=== PATIENT | female | born 1980 | race Caucasian/White ===

== ENCOUNTER 2017-08-16 09:05 | Inpatient (IN) | payer MEDICAID ==
[2017-08-14 10:39] LABS: BASOPHILS 0.6 % (0-2); EOSINOPHILS 2.6 % (0-7); HEMATOCRIT 37.2 % (36.0-48.0); HEMOGLOBIN 12.3 g/dL (12-16); IMMATURE GRANULOCYTES 0.2 % (0-5); MCH 29.2 pg (26.0-34.0); MCHC 33.1 g/dL (31.0-37.0); MCV 88.4 fL (80.0-100.0); MONOCYTES 9.4 % (2-11); NEUTROPHILS 58.2 % (40-80); RBC 4.21 10x6/uL (4.00-5.40); RDW 17.7 % (11.5-14.5); WBC 4.7 10x3/uL (4.8-10.8)
[2017-08-14 10:46] LABS: CALC OSMOLALITY 279 mosm/kg (275-300); CALCIUM 8.6 mg/dL (8.5-10.1); CARBON DIOXIDE 24.6 mmol/L (21.0-32.0); CHLORIDE - SERUM 105 mmol/L (98-107); CREATININE - SERUM 0.6 mg/dL (0.6-1.3); GLUCOSE 94 mg/dL (74-106); POTASSIUM - SERUM 3.9 mmol/L (3.5-5.1); SODIUM 141 mmol/L (136-145); UREA NITROGEN 10 mg/dL (7-18); eGFR NON AFRICAN AMERICAN > 90 mL/min (90-120)
[2017-08-14 11:00] LABS: PLATELET COUNT 186 10x3/uL (130-400)
[2017-08-16] VITALS (9 sets, daily range): BP systolic 90–100; BP diastolic 38–60; Ht 160 cm; Wt 54.5 kg
[~2017-08-16] VITALS: Ht 160 cm; Wt 54.5 kg
--- NOTE | ~2017-08-16 | OP ---
PATIENT NAME: BREANNA BENITEZ MEDICAL RECORD: [id number] :78 LOCATION:[id number] ADMISSION DATE:08/16/17 SURGEON: JOSE SMALLS MD DATE OF OPERATION: 08/16/2017 PREOPERATIVE DIAGNOSES: 1. Pelvic pain. 2. Dysfunctional uterine bleeding. POSTOPERATIVE DIAGNOSES: 1. Pelvic pain. 2. Dysfunctional uterine bleeding. 3. Right ovarian cyst. PROCEDURES: 1. Laparoscopically assisted vaginal hysterectomy. 2. Bilateral salpingo-oophorectomy. SURGEON: Jose Smalls MD ANESTHESIOLOGIST: Dr. Martinez. ANESTHETIC: General anesthetic with endotracheal intubation. FINDINGS: Uterus secondary prolapse. At the time of laparoscopy, the uterus was noted to be slightly enlarged and boggy and retroverted. A 4 cm right ovarian cyst was noted. SPECIMENS REMOVED: Uterus with cervix and bilateral tubes and ovaries with a cyst. SPECIMEN DISPOSITION: Pathology. ESTIMATED BLOOD LOSS: Less than or equal to 100 cc. URINE OUTPUT: 150 cc of clear urine FLUIDS: 1 liter of lactated Ringer's. COMPLICATIONS: None. DRAINS: Pacheco to gravity. INDICATIONS: The patient is a 37-year-old female with chronic pelvic pain. The patient has been counseled and desires definitive treatment for pelvic pain. The patient understands risks, benefits as well as the limitations of this procedure. The patient acknowledged understanding and limitations and wishes to proceed. DESCRIPTION OF PROCEDURE: After informed consent was assured, the patient was taken to the operating room, anesthetic was obtained without difficulty. The patient was prepped and draped in the usual sterile fashion. An incision was made at the umbilicus, to accommodate a 5-mm trocar. Accessory ports were now placed in the right and left lower quadrant. The patient being in steep Trendelenburg position has the bowel swept free and using a coagulation cutter OPERATIVE REPORT [id number] BREANNA BENITEZ infundibulopelvic ligament on the left side was compressed, coagulated, and . The dissection was carried down under the left ovary across the broad ligament and the vessels on the left side skeletonized. A bladder flap was developed to the midline. The attention was directed to the right side where the infundibulopelvic ligament is compressed, coagulated, and in similar fashion. The cyst with ovary is deflected medially as the dissection was carried out underneath here across the round ligament and the broad ligament was opened. Anterior leaf was opened and the bladder flap developed. Posterior leaf was opened. The vessels on the right side skeletonized. The patient now has her legs positioned for the vaginal portion of the case as pneumoperitoneum was released and a sheet covers the abdomen. The light is on standby. A speculum was introduced in the vagina. The cervix grasped with thyroid tenaculums and placed on gentle traction. Posterior cul-de-sac was entered sharply and the peritoneum tagged to the mucosa. One bite with [place] clips on both right and left side extends the opening. Then, these pedicles were tied with Vicryl stitch. The long-billed weighted speculum was now introduced and the uterosacral ligaments were grasped on both right and left side. After the uterosacral ligaments were mobilized and tagged with Vicryl stitches, the anterior portion of the vagina was addressed with Bovie cautery and the mucosa overlying the cervix was mobilized. The peritoneum was entered anteriorly and a Jsutin retractor placed. The remaining portion of the vascular bundle and the cardinal ligaments are grasped with [place] clamps, mobilized, and secured with [id number] stitches. The uterus with tubes and ovaries were now removed. The vascular bundles were inspected. Adequate hemostasis was noted. The cuff was now closed after reapproximating the peritoneum to the mucosa with 3-0 Vicryl. The cuff was closed in an anterior to posterior fashion until the level of the uterosacral ligaments were reached and then they were plicated in the midline. Closing along the posterior portion of the cuff was concluded and the stitch tied. The pneumoperitoneum was reestablished and adequate hemostasis was noted. The pelvis was copiously irrigated and the irrigant removed. Sponge, lap and needle count was correct times 2. The patient was awakened and went to the recovery area in stable condition. TRANSINT:[id number] Voice Confirmation ID: [id number] DOCUMENT ID: [id number] JOSE SMALLS MD at 0805 CC: [id number] DICTATION DATE: 09/13/17904 FULLER BRUSH WORKER: 09/13/17 1050 DIS IN 08/17/17 [facility] [address] [place] [address]
--- NOTE | ~2017-08-16 | DS ---
PATIENT:BREANNA BENITEZ :78 MEDICAL RECORD: [id number] DISCHARGE SUMMARY ADMISSION DATE: 08/16/17 DISCHARGE DATE: 08/17/17 DATE OF ADMISSION: 08/16/2017. DATE OF DISCHARGE: 08/17/2017. ADMISSION DIAGNOSES: 1. Uterine prolapse. 2. Pelvic mass. DISCHARGE DIAGNOSES: 1. Uterine prolapse. 2. Pelvic mass. PROCEDURE PERFORMED: Laparoscopic assisted vaginal hysterectomy with bilateral salpingo-oophorectomy. ATTENDING: Billy Smalls MD. HISTORY OF PRESENT ILLNESS: See the H&P in the chart. SUMMARY OF HOSPITALIZATION: The patient was admitted on 08/16/2017 and underwent surgery without difficulty. At the time of discharge, she is voiding without difficulty, tolerating p.o. DISCHARGE MEDICATIONS: Include Percocet and Motrin. The patient will be followed up in the clinic in few weeks. Standard postoperative precautions have been reviewed. TRANSINT:[id number] Voice Confirmation ID: [id number] DOCUMENT ID: [id number] BILLY SMALLS MD at 0805 CC: [id number] DICTATION DATE: 09/13/17 0858 IMPLEMENTATION SERVICES ANALYST: 09/13/17 1315 DIS IN 08/17/17 [facility] [id number] [place] [address]
[~2017-08-16 09:05] MED LIST: ADDERALL 20 MG20 M1 PO; AMBIEN10 MG PO; KLONOPIN1 MG PO; LEXAPRO20 MG PO; MOTRIN600 MG PO; PERCOCET 5/3251 TA1 PO; SUBUTEX8 MG; ZOFRAN4 MG
[2017-08-16 11:06] LABS: HCG SERUM NEGATIVE (NEGATIVE)
[2017-08-17 00:29] VITALS: BP 100/55
[2017-08-17 04:25] VITALS: BP 100/51
[2017-08-17 07:01] LABS: BASOPHILS 0.3 % (0-2); EOSINOPHILS 2.3 % (0-7); HEMATOCRIT 33.7 % (36.0-48.0); HEMOGLOBIN 10.8 g/dL (12-16); IMMATURE GRANULOCYTES 0.2 % (0-5); LYMPHOCYTES 29.5 % (15-50); MCH 28.8 pg (26.0-34.0); MCV 89.9 fL (80.0-100.0); MEAN PLATELET VOLUME 10.8 fL (7.4-10.4); MONOCYTES 8.8 % (2-11); NEUTROPHILS 58.9 % (40-80); PLATELET COUNT 170 10x3/uL (130-400); RBC 3.75 10x6/uL (4.00-5.40); RDW 17.3 % (11.5-14.5); WBC 6.2 10x3/uL (4.8-10.8)
[2017-08-17 08:45] VITALS: BP 89/52
[2017-08-17] MEDS ORDERED: GABAPENTIN100 MG PO (16:31)
== END 2017-08-17 16:45 | disposition home or self-care (01) | DRG 743 ==
LOC: D.OPS 09:05 → D.LD 15:45 → D.OPS 15:50 → D.LD 08-17 16:45
PROVIDERS: Anesthesiology; Obstetrics & Gynecology
PROC: 0UT7FZZ Resection of Bilateral Fallopian Tubes, Via Natural or Artificial Opening With Percutaneous Endoscopic Assistance (ICD-10-PCS; 2017-08-16)
PROC: 0UT9FZZ Resection of Uterus, Via Natural or Artificial Opening With Percutaneous Endoscopic Assistance (ICD-10-PCS; principal; 2017-08-16 11:00)
PROC: 0UT2FZZ Resection of Bilateral Ovaries, Via Natural or Artificial Opening With Percutaneous Endoscopic Assistance (ICD-10-PCS; 2017-08-16 11:00)
DX: N81.4 Uterovaginal prolapse, unspecified (principal); N83.201 Unspecified ovarian cyst, right side; G40.909 Epilepsy, unspecified, not intractable, without status epilepticus; Z72.0 Tobacco use